=== PATIENT | female | born 1940 | race Two or more races ===

== ENCOUNTER 2017-12-26 08:33 | Emergency (ER) | payer OTHER ==
[~2017-12-26] VITALS: Ht 160 cm; Wt 47.2 kg
[2017-12-26] MEDS ORDERED: CIPRO500 MG PO (10:38)
== END 2017-12-26 10:51 | disposition home or self-care (01) ==
LOC: ER 08:33
DX: N39.0 Urinary tract infection, site not specified (principal)

== ENCOUNTER 2019-03-18 08:58 | Emergency (ER) | payer OTHER ==
[~2019-03-18] VITALS: Ht 162.6 cm; Wt 56.7 kg
[~2019-03-18 08:58] MED LIST: CIPRO500 MG PO
[2019-03-18] MEDS ORDERED: VITAMIN C100 MG (10:05)
[2019-03-18] MEDS ORDERED: CIDAFLEX TABLE1 EACH (10:05)
[2019-03-18] MEDS ORDERED: CALCIUM500 M1 (10:06)
== END 2019-03-18 12:12 | disposition home or self-care (01) ==
LOC: ER 08:58
DX: J40 Bronchitis, not specified as acute or chronic (principal)